=== PATIENT | female | born 1960 | race Caucasian/White ===

== ENCOUNTER 2025-09-08 08:07 | Inpatient (IN) | payer OTHER, SELFPAY ==
[2025-09-08 08:45] LABS: #Basophils 0.04 10x3/uL (0.0-0.2); #Eosinophils 0.06 10x3/uL (0.0-0.7); #Monocytes 0.95 10x3/uL (0.11-0.59); #Neutrophils 8.77 10x3/uL (1.40-6.50); %Basophils 0.3 % (0.0-1.0); %Eosinophils 0.5 % (0.0-10.0); %Lymphocytes 14.5 % (21.0-51.0); %Monocytes 8.2 % (0.0-10.0); %Neutrophils 75.5 % (42.0-75.0); Hematocrit 23.7 % (36.0-47.0); Hemoglobin 6.9 g/dL (12.0-16.0); Mean Corpuscular Hemoglobin 28.3 pg (27.0-31.0); Mean Corpuscular Volume 97.1 fL (78.0-98.0); Platelet Count 201 10x3/uL (130-400); Red Blood Cell (RBC) Count 2.44 mill/uL (4.20-5.40); White Blood Cell (WBC) Count 11.63 10x3/uL (4.8-10.8)
[2025-09-08 08:57] LABS: INR-International Normal Ratio 1.1; PTT 30.1 sec (22.9-36.1); Prothrombin Time 14.6 sec (12.0-14.7)
[2025-09-08 09:11] LABS: ALT (SGPT) 30 U/L (Less than 34); AST (SGOT) 123 U/L (11-34); Albumin 2.5 g/dL (3.1-4.5); Alkaline Phosphatase 317 U/L (40-110); Anion Gap 19 mmol/L (10-20); BUN (Urea Nitrogen) 7 mg/dL (9.8-20.1); Bilirubin, Total 0.4 mg/dL (0.3-1.2); Calc. Creatinine Clearance 0 mL/min (70-130); Calcium 7.0 mg/dL (7.8-10.44); Carbon Dioxide 19 mmol/L (23-31); Chloride 103 mmol/L (98-107); Globulin 3.2 g/dL (2.4-3.5); Glucose 119 mg/dL (80-115); Potassium 1.5 mmol/L (3.5-5.1); Sodium 139 mmol/L (136-145)
[2025-09-08] MEDS ORDERED: NS 0.9% w/ 20 MEQ KCL 2,000 ML ONE (09:50)
[2025-09-08] MEDS ORDERED: CALCIUM GLUC 1 GM/NS 50 ML IV Bag ONE (10:12)
[2025-09-08] MEDS ORDERED: Melatonin 3 MG TAB PO PRN (11:59)
[2025-09-08] MEDS ORDERED: Electrolyte Replacement Protocol 1 EACH FS SCH (12:00)
[2025-09-08] MEDS ORDERED: hydrALAZINE 20 MG/ML VIAL SLOW IVP PRN (12:13)
[2025-09-08] MEDS ORDERED: Iopamidol-370 76% 500 ML MDV (1 ML CHARGE) ONE (12:19)
[2025-09-08 14:14] LABS: Anion Gap 8 mmol/L (10-20); BUN (Urea Nitrogen) 6 mg/dL (9.8-20.1); Calc. Creatinine Clearance 0 mL/min (70-130); Calcium 6.6 mg/dL (7.8-10.44); Carbon Dioxide 24 mmol/L (23-31); Chloride 109 mmol/L (98-107); Glucose 92 mg/dL (80-115); Magnesium 0.8 mg/dL (1.6-2.6); Potassium 1.6 mmol/L (3.5-5.1); Sodium 139 mmol/L (136-145)
[2025-09-08 14:45] VITALS: BMI 22.3
[2025-09-08] MEDS: Folic Acid 1 MG in Admixture Fee 1 EACH IVP SCH (14:54)
[2025-09-08] MEDS ORDERED: PHOS-NAK 1 PKT PACK PO PRN (15:45)
[2025-09-08] MEDS ORDERED: Potassium Chloride 20 MEQ in Premix 1 BAG IVPB PRN (15:45)
[2025-09-08] MEDS ORDERED: Magnesium 2 GM/50 ML(in water) 2 GM in Premix 1 BAG IVPB PRN (15:45)
[2025-09-08] MEDS ORDERED: Potassium Chloride 10 MEQ in Premix 1 BAG IVPB SCH (15:45)
[2025-09-08] MEDS ORDERED: Magnesium 2 GM/50 ML(in water) 2 GM in Premix 1 BAG IVPB SCH (16:00)
[2025-09-08] MEDS ORDERED: Magnesium Sulfate 4 GM in Sodium Chloride 0.9% 250 ML 250 ML IVPB SCH (16:00)
[2025-09-08 16:05] LABS: CAUTI Indications for Culture Pelvic or flank pain; Glucose, Urine (Dipstick) Normal (Negative); Leukocyte 500 Leu/uL (Negative); Protein, Urine (Dipstick) Negative (Neg-Trace); RBC/HPF 0-3 HPF (0-3); Specific Gravity, Urine 1.016 (1.002-1.036)
[2025-09-08 16:07] LABS: Bacteria/HPF 1+ HPF (None Seen)
[2025-09-08 16:08] LABS: Urine Culture Reflex No No
[2025-09-08] MEDS ORDERED: Potassium Chloride 20 MEQ (100 mL) BAG ONE ×2 (16:29→19:42)
[2025-09-08] MEDS ORDERED: Magnesium 2 GM/50 ML BAG (IN WATER) ONE (16:29)
[2025-09-08] MEDS: Magnesium Sulfate In Water 4 GM in Premix 1 BAG IVPB SCH (16:39)
[2025-09-08] MEDS: Potassium Chloride 20 MEQ in Premix 1 BAG IVPB SCH (16:40)
[2025-09-08 22:17] LABS: Anion Gap 18 mmol/L (10-20); BUN (Urea Nitrogen) 4 mg/dL (9.8-20.1); Calc. Creatinine Clearance 79 mL/min (70-130); Calcium 6.7 mg/dL (7.8-10.44); Carbon Dioxide 18 mmol/L (23-31); Chloride 114 mmol/L (98-107); Glucose 103 mg/dL (80-115); Magnesium 2.4 mg/dL (1.6-2.6); Potassium 2.0 mmol/L (3.5-5.1); Sodium 148 mmol/L (136-145)
[2025-09-08] MEDS: D5 1/2 NS w/40 mEq KCL 1,000 ML IV SCH (23:56)
[2025-09-09 04:27] LABS: #Basophils 0.04 10x3/uL (0.0-0.2); #Eosinophils 0.05 10x3/uL (0.0-0.7); #Monocytes 0.61 10x3/uL (0.11-0.59); #Neutrophils 8.30 10x3/uL (1.40-6.50); %Basophils 0.4 % (0.0-1.0); %Eosinophils 0.5 % (0.0-10.0); %Lymphocytes 11.3 % (21.0-51.0); %Monocytes 5.9 % (0.0-10.0); %Neutrophils 80.5 % (42.0-75.0); Hematocrit 25.2 % (36.0-47.0); Hemoglobin 7.6 g/dL (12.0-16.0); Mean Corpuscular Hemoglobin 28.7 pg (27.0-31.0); Mean Corpuscular Volume 95.1 fL (78.0-98.0); Platelet Count 213 10x3/uL (130-400); Red Blood Cell (RBC) Count 2.65 mill/uL (4.20-5.40); White Blood Cell (WBC) Count 10.30 10x3/uL (4.8-10.8)
[2025-09-09 05:06] LABS: Anion Gap 17 mmol/L (10-20); BUN (Urea Nitrogen) 4 mg/dL (9.8-20.1); Calc. Creatinine Clearance 74 mL/min (70-130); Calcium 6.5 mg/dL (7.8-10.44); Carbon Dioxide 20 mmol/L (23-31); Cardiac Risk 8.9 (Less than 4.5); Chloride 113 mmol/L (98-107); Cholesterol 187 mg/dl (< 200 Desired); Glucose 94 mg/dL (80-115); HDL Cholesterol 21 mg/dL (>60 Neg Risk); Magnesium 1.9 mg/dL (1.6-2.6); Potassium 2.1 mmol/L (3.5-5.1); Sodium 148 mmol/L (136-145); Triglycerides 421 mg/dL (Less than 150)
[2025-09-09] MEDS: Calcium Carbonate 500 MG ChewTAB PO SCH ×2 (06:06→09:03)
[2025-09-09] MEDS: Enoxaparin 40 MG (0.4 mL) SYRINGE SC SCH (08:59)
[2025-09-09] MEDS: Multivit, Therapeutic 1 TAB PO SCH (08:59)
[2025-09-09] MEDS: Aspirin 81 mg Enteric Coated Tablet PO SCH (08:59)
[2025-09-09] MEDS: Folic Acid 1 MG TAB PO SCH (08:59)
[2025-09-09] MEDS: Acetaminophen 325 MG TAB PO PRN (21:14)
[2025-09-10 02:20] LABS: Potassium 3.0 mmol/L (3.5-5.1)
[2025-09-10 03:45] LABS: #Basophils 0.04 10x3/uL (0.0-0.2); #Eosinophils 0.05 10x3/uL (0.0-0.7); #Monocytes 0.51 10x3/uL (0.11-0.59); #Neutrophils 6.04 10x3/uL (1.40-6.50); %Basophils 0.5 % (0.0-1.0); %Eosinophils 0.6 % (0.0-10.0); %Lymphocytes 17.5 % (21.0-51.0); %Monocytes 6.2 % (0.0-10.0); %Neutrophils 74.0 % (42.0-75.0); Hematocrit 20.5 % (36.0-47.0); Hemoglobin 6.1 g/dL (12.0-16.0); Mean Corpuscular Hemoglobin 28.5 pg (27.0-31.0); Mean Corpuscular Volume 95.8 fL (78.0-98.0); Platelet Count 164 10x3/uL (130-400); Red Blood Cell (RBC) Count 2.14 mill/uL (4.20-5.40); White Blood Cell (WBC) Count 8.17 10x3/uL (4.8-10.8)
[2025-09-10 04:08] LABS: Anion Gap 11 mmol/L (10-20); BUN (Urea Nitrogen) Less than 4 mg/dL (9.8-20.1); Calc. Creatinine Clearance 90 mL/min (70-130); Calcium 6.5 mg/dL (7.8-10.44); Carbon Dioxide 21 mmol/L (23-31); Chloride 112 mmol/L (98-107); Glucose 85 mg/dL (80-115); Potassium 2.8 mmol/L (3.5-5.1); Sodium 141 mmol/L (136-145)
[2025-09-10] MEDS: Calcium Carbonate 500 MG ChewTAB PO SCH (05:00)
[2025-09-10] MEDS ORDERED: Magnesium Sulfate/D5W 1 GM/100 ML BAG IVPB SCH (07:00)
[2025-09-10] MEDS: Magnesium Sulfate/D5W 1 GM in Premix 1 BAG IVPB SCH (08:32)
[2025-09-10 12:38] LABS: Potassium 4.3 mmol/L (3.5-5.1)
[2025-09-11 06:13] LABS: #Basophils 0.06 10x3/uL (0.0-0.2); #Eosinophils 0.06 10x3/uL (0.0-0.7); #Monocytes 0.65 10x3/uL (0.11-0.59); #Neutrophils 9.03 10x3/uL (1.40-6.50); %Basophils 0.5 % (0.0-1.0); %Eosinophils 0.5 % (0.0-10.0); %Lymphocytes 11.2 % (21.0-51.0); %Monocytes 5.8 % (0.0-10.0); %Neutrophils 80.4 % (42.0-75.0); Hematocrit 27.4 % (36.0-47.0); Hemoglobin 8.4 g/dL (12.0-16.0); Mean Corpuscular Hemoglobin 29.4 pg (27.0-31.0); Mean Corpuscular Volume 95.8 fL (78.0-98.0); Platelet Count 185 10x3/uL (130-400); Red Blood Cell (RBC) Count 2.86 mill/uL (4.20-5.40); White Blood Cell (WBC) Count 11.24 10x3/uL (4.8-10.8)
[2025-09-11 06:31] LABS: Anion Gap 14 mmol/L (10-20); BUN (Urea Nitrogen) Less than 4 mg/dL (9.8-20.1); Calc. Creatinine Clearance 97 mL/min (70-130); Calcium 7.1 mg/dL (7.8-10.44); Carbon Dioxide 17 mmol/L (23-31); Chloride 112 mmol/L (98-107); Glucose 89 mg/dL (80-115); Magnesium 1.2 mg/dL (1.6-2.6); Potassium 4.6 mmol/L (3.5-5.1); Sodium 138 mmol/L (136-145)
[2025-09-11] MEDS ORDERED: Magnesium Sulfate/D5W 1 GM/100 ML BAG IVPB SCH (07:15)
[2025-09-11] MEDS: Magnesium Sulfate/D5W 1 GM in Premix 1 BAG IVPB SCH (08:48)
[2025-09-11] MEDS: Thiamine 100 MG TAB PO SCH (09:45)
[2025-09-12 03:44] LABS: #Basophils 0.05 10x3/uL (0.0-0.2); #Eosinophils 0.09 10x3/uL (0.0-0.7); #Monocytes 0.59 10x3/uL (0.11-0.59); #Neutrophils 6.69 10x3/uL (1.40-6.50); %Basophils 0.6 % (0.0-1.0); %Eosinophils 1.0 % (0.0-10.0); %Lymphocytes 14.3 % (21.0-51.0); %Monocytes 6.7 % (0.0-10.0); %Neutrophils 76.1 % (42.0-75.0); Hematocrit 27.0 % (36.0-47.0); Hemoglobin 8.0 g/dL (12.0-16.0); Mean Corpuscular Hemoglobin 29.2 pg (27.0-31.0); Mean Corpuscular Volume 98.5 fL (78.0-98.0); Platelet Count 179 10x3/uL (130-400); Red Blood Cell (RBC) Count 2.74 mill/uL (4.20-5.40); White Blood Cell (WBC) Count 8.79 10x3/uL (4.8-10.8)
[2025-09-12 04:01] LABS: Anion Gap 15 mmol/L (10-20); BUN (Urea Nitrogen) 5 mg/dL (9.8-20.1); Calc. Creatinine Clearance 101 mL/min (70-130); Calcium 7.5 mg/dL (7.8-10.44); Carbon Dioxide 16 mmol/L (23-31); Chloride 112 mmol/L (98-107); Glucose 95 mg/dL (80-115); Potassium 3.4 mmol/L (3.5-5.1); Sodium 140 mmol/L (136-145)
[2025-09-12] MEDS: Sodium Bicarbonate Tab 325 MG TAB PO SCH (09:17)
[2025-09-12 12:50] VITALS: TEMP 97.4
[2025-09-12 12:51] VITALS: BP 145/97
== END 2025-09-12 14:45 | disposition home or self-care (01) | DRG 641 ==
LOC: ERS 08:07 → ERHOLD 12:04 → PCU 09-09 03:27
PROVIDERS: ADMIT Family Medicine; ATTEND Internal Medicine
PROC: HZ2ZZZZ Detoxification Services for Substance Abuse Treatment (ICD-10-PCS; principal; 2025-09-08)
DX: E87.6 Hypokalemia (principal); R29.898 Other symptoms and signs involving the musculoskeletal system; F17.210 Nicotine dependence, cigarettes, uncomplicated; Z79.899 Other long term (current) drug therapy; D50.9 Iron deficiency anemia, unspecified; E04.2 Nontoxic multinodular goiter; E83.42 Hypomagnesemia; F10.20 Alcohol dependence, uncomplicated
CPT/HCPCS: 36415; 36416; 36430; 70496; 70498; 70551; 80048; 80053; 80061; 81001; 82533; 83036; 83735; 84100; 84443; 85025; 85610; 85730; 86850; 86900; 86901; 93005; 93306; 94760; 96365; 96366; 96374; 96375; J0613; J1650; J3411; J3475; J3480; J7050; J7120; P9016; Q9967